=== PATIENT | female | born 1980 | race Caucasian/White ===

== ENCOUNTER 2017-12-26 21:48 | Emergency (ER) | payer OTHER ==
[~2017-12-26] VITALS: Ht 172.7 cm; Wt 98.0 kg
[2017-12-26 22:21] LABS: CLARITY,URINE CLOUDY (CLEAR); COLOR,URINE YELLOW (YELLOW)
[2017-12-26 22:22] LABS: BILIRUBIN,URINE NEGATIVE (NEGATIVE); KETONES,URINE NEGATIVE (NEGATIVE); LEUKOCYTE ESTERASE ,URINE NEGATIVE (NEGATIVE); NITRITE,URINE NEGATIVE (NEGATIVE); PROTEIN,URINE DIPSTICK NEGATIVE (NEGATIVE); URINE UROBILINOGEN 0.2 mg/dL (0.2 - 1)
[2017-12-26 22:24] LABS: RBC,URINE 21-50 /HPF (0-5); WBC,URINE (MAN) 0-5 /HPF (0-5)
[2017-12-26 22:25] LABS: AMORPHOUS SEDIMENT,URINE MODERATE (FEW); BACTERIA,URINE FEW /HPF; EPITHELIAL CELLS,URINE FEW /LPF
[2017-12-26 22:26] LABS: PREGNANCY TEST, URINE NEGATIVE (NEGATIVE)
--- NOTE | 2017-12-26 23:03 | Diagnostic Imaging Report ---
Exam: Head CT without contrast History: Headache Comparison studies: None Technique: Axial images were obtained from the skull base to the vertex. Coronal and sagittal images reconstructed from the axial data. Intravenous contrast: None Findings: Scalp: No abnormalities. Bones: No fractures, blastic or lytic lesions. Brain sulci: Appropriate for age. Ventricles: Normal in size and configuration. No hydrocephalus. Extra-axial spaces: No masses, no fluid collection. Parenchyma: No abnormal densities. No masses, acute hemorrhage, acute or chronic vascular insults. Sellar/suprasellar region: No abnormalities. Craniocervical junction: Patent foramen magnum. No Chiari one malformation. IMPRESSION: No acute abnormalities. Signed by: Dr. Will Ayala M.D. on 12/26/2017 10:59 PM
[2017-12-26 23:12] VITALS: BP 129/79
== END 2017-12-26 23:20 | disposition home or self-care (01) ==
LOC: ER 21:48
DX: G44.229 Chronic tension-type headache, not intractable (principal); I10 Essential (primary) hypertension; F31.9 Bipolar disorder, unspecified
CPT/HCPCS: 70450; 81001; 81025; 99283

== ENCOUNTER 2018-03-01 22:03 | Emergency (ER) | payer OTHER ==
[~2018-03-01] VITALS: Ht 172.7 cm; Wt 102.1 kg
--- NOTE | 2018-03-01 23:03 | Diagnostic Imaging Report ---
ELBOW 3 VIEW RT - HOPD HISTORY: Right elbow pain COMPARISON: None FINDINGS: Bones: No displaced fracture. Osseous alignment is within normal limits. Joints: The joint spaces are well-maintained. Soft tissues: The soft tissues appear unremarkable. IMPRESSION: No acute radiographic abnormality. Signed by: Dr. Rahul Lin M.D. on 03/01/2018 11:00 PM
== END 2018-03-01 23:25 | disposition home or self-care (01) ==
LOC: FSED 22:03
DX: S53.431A Radial collateral ligament sprain of right elbow, initial encounter (principal); W18.39XA Other fall on same level, initial encounter; Y92.008 Other place in unspecified non-institutional (private) residence as the place of occurrence of the external cause; I51.9 Heart disease, unspecified
CPT/HCPCS: 99283

== ENCOUNTER 2018-07-25 18:06 | Emergency (ER) | payer OTHER ==
[~2018-07-25] VITALS: Ht 172.7 cm; Wt 111.1 kg
--- OUTSIDE RECORDS SUMMARY | 2018-07-25 18:09 | XMS REPORT | Summary of Care ---
Author Author [facility] Organization [facility] Address Unknown Phone Unavailable Encounter CLOTILDE Martinez(MARYANN) [id number] Date(s): 06/13/15 - 06/14/15 [facility] [address] [place] [address]- Discharge Diagnosis: Pneumonia Discharge Disposition: Home Attending Physician: Monroe Corona MD Vital Signs 1 2 3 Most recent to oldest [Reference Range]: 172.72 cm (06/13/15 5:46 PM) Height 99.2 DegF *HI* (06/14/15 12:05 AM) 99.6 DegF *HI* (06/13/15 9:47 PM) 100.6 DegF *HI* (06/13/15 8:23 PM) Temperature Oral [96.4-99.1 DegF] 121/60 mmHg (06/14/15 12:05 AM) 122/62 mmHg (06/13/15 10:57 PM) 124/60 mmHg (06/13/15 9:47 PM) Blood Pressure [90-140/60-90 mmHg] 16 BRMIN (06/14/15 12:05 AM) 18 BRMIN (06/13/15 10:57 PM) 18 BRMIN (06/13/15 9:47 PM) Respiratory Rate [14-20 BRMIN] 80 bpm (06/14/15 12:05 AM) 98 bpm (06/13/15 10:57 PM) 104 bpm *HI* (06/13/15 9:47 PM) Peripheral Pulse Rate [60-100 bpm] 104.545 kg (06/13/15 5:46 PM) Weight 35.04 m2 (06/13/15 5:46 PM) Body Mass Index Problem List Condition Effective Dates Status Health Status Informant Atopic dermatitis1 08/29/10 Active Conjunctivitis2 12/11/10 Active Diabetes(Confirmed) Active Diarrhea3 05/08/10 Active Epigastric pain4 05/08/10 Active Mixed anxiety and 02/19/10 Active depressive disorder5 Right upper quadrant 05/08/10 Active pain6 1Data migrated from [employer] on 10/30/14. 2Data migrated from [employer] on 10/30/14. 3Data migrated from [employer] on 10/30/14. 4Data migrated from [employer] on 10/30/14. 5Data migrated from [employer] on 10/30/14. 6Data migrated from [employer] on 10/30/14. Allergies, Adverse Reactions, Alerts Substance Reaction Severity Status NKDA Active Medications azithromycin + Sodium Chloride 0.9% IV 250 mL 500 mg, Route: IVPB, ONCE, Dosing Weight 104.545, kg, Priority: STAT, Start date : 06/13/15 20:31:00, Stop date: 06/13/15 20:31:00 Notes: (Same As: Zithromax IV) Start Date: 06/13/15 Stop Date: 06/13/15 Status: Completed cefTRIAXone + Sodium Chloride 0.9% IV 100 mL 1 gm, Route: IVPB, ONCE, Dosing Weight 104.545, kg, Priority: STAT, Start date: 06/13/15 20:31:00, Stop date: 06/13/15 20:31:00 Notes: (Same As: Rocephin).Use with 100 mL NS and infuse over 30 min MEDICA TION WASTE Product Size: 1000 mgProduct Wasted: ___ mg Start Date: 06/13/15 Stop Date: 06/13/15 Status: Completed ketOROLAC 30 mg, 1 mL, Route: IVP, Drug form: INJ, ONCE, Dosing Weight 104.545, kg, Priori ty: STAT, Start date: 06/13/15 22:35:00, Stop date: 06/13/15 22:35:00 Notes: (Same as:Toradol) IV bolus must be given >15 seconds. Give IM administration slowly and deeply into the muscle.Not for use > 4 days MEDICATION WASTE Product Size: 30 mgProduct Wasted: ___ mg Start Date: 06/13/15 Stop Date: 06/13/15 Status: Completed Levaquin 750 mg oral tablet 750 mg=1 tab, PO, Q24H, X 10 day, # 10 tab, 0 Refill(s) Start Date: 06/13/15 Stop Date: 06/23/15 Status: Ordered Saline Flush 0.9% 10 mL, Route: IVP, Drug Form: INJ, Dosing Weight 104.545, kg, PRN, PRN Line Flus h, Start date: 06/13/15 20:27:00, Duration: 30 day, Stop date: 07/13/15 20:26:00 Notes: Same as: BD Posiflush Sterile Start Date: 06/13/15 Stop Date: 06/14/15 Status: Discontinued Sodium Chloride 0.9% (Bolus) IV 1,000 mL, 1000 ml/hr, Infuse Over: 1 hr, Route: IV, 1,000, Drug form: INJ, ONCE, Priority: STAT, Dosing Weight 104.545 kg, Start date: 06/13/15 20:31:00, Durati on: 1 doses or times, Stop date: 06/13/15 20:31:00 Start Date: 06/13/15 Stop Date: 06/13/15 Status: Completed Zofran 4 mg oral tablet 4 mg=1 tab, PO, TID, X 1 day, # 3 tab, 0 Refill(s) Start Date: 06/13/15 Stop Date: 06/14/15 Status: Completed Results ELECTROLYTES Most recent to 1 oldest [Reference Range]: Sodium Lvl [135-145 141 mEq/L mEq/L] (06/13/15 8:52 PM) Potassium Lvl 3.3 mEq/L [3.5-5.1 mEq/L] *LOW* (06/13/15 8:52 PM) Chloride Lvl [95-109 104 mEq/L mEq/L] (06/13/15 8:52 PM) CO2 [24-32 mEq/L] 25 mEq/L (06/13/15 8:52 PM) AGAP [10.0-20.0 15.3 mEq/L mEq/L] (06/13/15 8:52 PM) CHEM PANEL Most recent to 1 oldest [Reference Range]: Creatinine Lvl 1.21 mg/dL [0.50-1.40 mg/dL] (06/13/15 8:52 PM) eGFR 59 mL/min/1.73m2 1 *NA* (06/13/15 8:52 PM) BUN [7-22 mg/dL] 13 mg/dL (06/13/15 8:52 PM) B/C Ratio [6-25] 11 (06/13/15 8:52 PM) Glucose Lvl [70-99 150 mg/dL mg/dL] *HI* (06/13/15 8:52 PM) Total Protein 7.5 g/dL [6.4-8.4 g/dL] (06/13/15 8:52 PM) Albumin Lvl [3.5-5.0 3.5 g/dL g/dL] (06/13/15 8:52 PM) Globulin [2.0-4.0 4.0 g/dL g/dL] (06/13/15 8:52 PM) A/G Ratio [0.7-1.6] 0.9 (06/13/15 8:52 PM) Calcium Lvl 9.1 mg/dL [8.5-10.5 mg/dL] (06/13/15 8:52 PM) Phosphorus [2.5-4.5 1.9 mg/dL mg/dL] *LOW* (06/13/15 8:52 PM) Magnesium Lvl 1.5 mg/dL [1.8-2.4 mg/dL] *LOW* (06/13/15 8:52 PM) ALT [0-65 unit/L] 35 unit/L (06/13/15 8:52 PM) AST [0-37 unit/L] 16 unit/L (06/13/15 8:52 PM) Alk Phos [39-136 66 unit/L unit/L] (06/13/15 8:52 PM) Bili Total [0.2-1.3 0.8 mg/dL mg/dL] (06/13/15 8:52 PM) 1Result Comment: The eGFR is calculated using the CKD-EPI formula. In most young, healthy individuals the eGFR will be >90 mL/min/1.73m2. The eGFR declines with age. An eGFR of 60-89 may be normal in some populations, particularly the elderly, for whom the CKD-EPI formula has not been extensively validated. Use of the eGFR is not recommended in the following populations: Individuals with unstable creatinine concentrations, including patients and those with serious co-morbid conditions. Patients with extremes in muscle mass or diet. The data above are obtained from the National Kidney Disease Education Program ( NKDEP) which additionally recommends that when the eGFR is used in patients with extremes of body mass index for purposes of drug dosing, the eGFR should be mul tiplied by the estimated BMI. CARDIAC ENZYMES Most recent to 1 oldest [Reference Range]: Total CK [12-191 37 unit/L unit/L] (06/13/15 8:52 PM) CK MB [0.5-3.6 <0.5 ng/mL ng/mL] (06/13/15 8:52 PM) CK MB Index <1.4 [0.0-2.5] (06/13/15 8:52 PM) Troponin-I <0.02 ng/mL [0.00-0.40 ng/mL] (06/13/15 8:52 PM) BNP [<=100 pg/mL] 8 pg/mL (06/13/15 8:52 PM) HEMATOLOGY Most recent to 1 oldest [Reference Range]: WBC [3.7-10.4 K/CMM] 21.7 K/CMM *HI* (06/13/15 8:52 PM) RBC [4.20-5.40 3.99 M/CMM M/CMM] *LOW* (06/13/15 8:52 PM) Hgb [12.0-16.0 g/dL] 12.2 g/dL (06/13/15 8:52 PM) Hct [36.0-48.0 %] 36.4 % (06/13/15 8:52 PM) MCV [80.0-98.0 fL] 91.1 fL (06/13/15 8:52 PM) MCH [27.0-31.0 pg] 30.6 pg (06/13/15 8:52 PM) MCHC [32.0-36.0 33.6 g/dL g/dL] (06/13/15 8:52 PM) RDW [11.5-14.5 %] 12.6 % (06/13/15 8:52 PM) Platelet [133-450 251 K/CMM K/CMM] (06/13/15 8:52 PM) MPV [7.4-10.4 fL] 7.1 fL *LOW* (06/13/15 8:52 PM) Segs [45.0-75.0 %] 83.3 % *HI* (06/13/15 8:52 PM) Lymphocytes 6.9 % [20.0-40.0 %] *LOW* (06/13/15 8:52 PM) Monocytes [2.0-12.0 9.2 % %] (06/13/15 8:52 PM) Eosinophils [0.0-4.0 0.1 % %] (06/13/15 8:52 PM) Basophils [0.0-1.0 0.5 % %] (06/13/15 8:52 PM) Segs-Bands # 18.1 K/CMM [1.5-8.1 K/CMM] *HI* (06/13/15 8:52 PM) Lymphocytes # 1.5 K/CMM [1.0-5.5 K/CMM] (06/13/15 8:52 PM) Monocytes # [0.0-0.8 2.0 K/CMM K/CMM] *HI* (06/13/15 8:52 PM) Basophils # [0.0-0.2 0.1 K/CMM K/CMM] (06/13/15 8:52 PM) PT [12.0-14.7 14.5 seconds seconds] (06/13/15 8:52 PM) INR [0.85-1.17] 1.10 (06/13/15 8:52 PM) D-Dimer 0.29 ug/mL FEU *NA* (06/13/15 8:52 PM) PTT [22.9-35.8 34.9 seconds seconds] (06/13/15 8:52 PM) Immunizations No data available for this section Procedures No data available for this section Social History Social History Type Response Alcohol Never Smoking Status Never smoker; Exposure to Tobacco Smoke None; Cigarette Smoking Last 365 Days No; Reg Smoking Cessation Counseling No Assessment and Plan No data available for this section
--- OUTSIDE RECORDS SUMMARY | 2018-07-25 18:09 | XMS REPORT | Clinical Summary ---
Author Author [facility] Address Unknown Phone Unavailable Care Team Providers Care Major Sales Associate Name Role Phone Asked, No Pcp PCP Unavailable Allergies No Known Allergies Medications End Date Status Medication Sig Dispensed Refills Start Date Active venlafaxine XR TAKE ONE (1) 2 (EFFEXOR-XR) 150 MG 24 hr CAPSULE(S) BY 7 capsule MOUTH DAILY. Active metFORMIN XR TAKE ONE (1) 1 (GLUCOPHAGE-XR) 500 mg 24 TABLET(S) BY 7 hr tablet MOUTH TWICE DAILY. Active diazePAM (VALIUM) 10 MG TAKE ONE (1) 2 tablet TABLET(S) BY 7 MOUTH DAILY NEEDED FOR SEVERE ANXIETY. Active benzonatate (TESSALON) TAKE ONE (1) 0 200 MG capsule CAPSULE(S) BY 7 MOUTH THREE TIMES A DAY NEEDED. Active ibuprofen (ADVIL) 200 MG Take 200 mg 0 tablet by mouth every 6 (six) hours as needed for mild pain. Active diclofenac (VOLTAREN) 1 % Apply 3 Tube 1 gel topically 4 8 (four) times a day. Active lamoTRIgine (LaMICtal) Take 150 mg 0 150 MG tablet by mouth daily. Active amoxicillin (AMOXIL) 500 TAKE ONE (1) 0 MG capsule CAPSULE(S) BY 8 MOUTH EVERY EIGHT HOURS UNTIL ALL TAKEN. Active metoprolol succinate XL TAKE ONE (1) 3 (TOPROL-XL) 50 mg 24 hr TABLET(S) BY 8 tablet MOUTH ONCE A DAY. Active QUEtiapine (SEROquel) 400 Take 400 mg 0 MG tablet by mouth nightly. Also takes 100 mg together, to take 500 mg total qhs 10/01/2017 Discontinued QUEtiapine (SEROquel) 300 TAKE ONE (1) 2 MG tablet TABLET(S) BY 7 MOUTH AT EVERY BEDTIME. 10/01/2017 Discontinued QUEtiapine (SEROquel) 400 TAKE ONE (1) 2 MG tablet TABLET(S) BY 8 MOUTH ONCE A DAY AT BEDTIME. Active Problems Problem Noted Date Lateral epicondylitis, left elbow 06/22/2017 Encounters Care Team Description Date Type Specialty Jennifer Bryant MD Medial epicondylitis, left (Primary Dx); Closed fracture dislocation of right elbow joint, initial encounter 03/08/2018 Office Visit Orthopedic Surgery Jennifer Bryant MD Medial epicondylitis, left (Primary Dx) 10/01/2017 Office Visit Orthopedic Surgery after 07/24/2017 Family History Medical History Relation Name Comments Diabetes Father Heart disease Father Kidney disease Father Diabetes Mother Heart disease Mother Hypertension Sister Relation Name Status Comments Father Mother Alive Sister Alive Social History Date Tobacco Use Types Packs/Day Years Used Never Smoker Smokeless Tobacco: Never Used Alcohol Use Drinks/Week oz/Week Comments No Sex Assigned at Date Recorded Not on file Industry Job Start Date Occupation Not on file Not on file Not on file Travel End Travel History Travel Start No recent travel history available. Last Filed Vital Signs Time Taken Vital Sign Reading - Blood Pressure - - Pulse - - Temperature - - Respiratory Rate - - Oxygen Saturation - - Inhaled Oxygen - Concentration 10/01/2017 4:24 PM CDT Weight 99.8 kg (220 lb) 10/01/2017 4:24 PM CDT Height 172.7 cm (5' 8") 10/01/2017 4:24 PM CDT Body Mass Index 33.45 Plan of Treatment Health Maintenance Due Date Last Done Comments CERVICAL CANCER SCREENING 2003 INFLUENZA VACCINE 12/29/2017 Procedures Comments Procedure Name Priority Date/Time Associated Diagnosis [place] ARTHROCENTESIS Routine 03/08/2018 Medial epicondylitis, ASPIR&/INJ INTERM JT/BURS 8:30 AM CDT left W/O US [place] ARTHROCENTESIS Routine 10/01/2017 Medial epicondylitis, ASPIR&/INJ INTERM JT/BURS 3:50 PM CDT left W/O US after 07/24/2017 Results * Medium Joint Arthrocentesis (03/08/2018 8:30 AM CDT) Narrative Performed At Jennifer Bryant MD 03/08/20188:59 AM Medium Joint Arthrocentesis Supporting Documentation Indications: pain Procedure Details Location: elbow - L elbow Left side: Approach: medial Left elbow medications administered: 40 mg methylPREDNISolone acetate 40 mg/mL; 1 mL lidocaine 10 mg/mL (1 %) (The patient will apply ice to the injected area today and use OTC meds as needed for injection pain. We discussed potential risks to include infection, pain, ineffectuality, fat atrophy, skin pigmentation loss, and need for more treatment.) * Medium Joint Arthrocentesis (10/01/2017 3:50 PM CDT) Narrative Performed At Jennifer Brynat MD 10/01/20175:06 PM Medium Joint Arthrocentesis Supporting Documentation Indications: pain Procedure Details Location: elbow - L elbow Left side: Approach: medial Left elbow medications administered: 40 mg methylPREDNISolone acetate 40 mg/mL; 1 mL lidocaine 10 mg/mL (1 %) (The patient will apply ice to the injected area today and use OTC meds as needed for injection pain. We discussed potential risks to include infection, pain, ineffectuality, fat atrophy, skin pigmentation loss, and need for more treatment.) after 07/24/2017 Insurance Payer Benefit Subscriber ID Type Phone Address Plan / Group AETNA AETNA PPO xxxxxxxxxx PPO OPEN CHOICE Advance Directives Patient has advance care planning documents on file. For more information, ana manjarrez contact: Aric Miguel [address] [place] [address]
--- OUTSIDE RECORDS SUMMARY | 2018-07-25 18:09 | XMS REPORT | Summary of Care ---
Author Author [facility] Organization [facility] Address Unknown Phone Unavailable Encounter CLOTILDE Martinez(MARYANN) [id number] Date(s): 09/26/16 - 09/27/16 [facility] [address] [place] [address]- Discharge Diagnosis: Pain, dental Discharge Diagnosis: Dental caries Discharge Disposition: Home or Self Care Attending Physician: Trevor Espinosa DO Vital Signs Most recent to 1 2 oldest [Reference Range]: Height 172.72 cm (09/26/16 8:56 PM) Temperature Oral 98.6 DegF 98.7 DegF [96.4-99.1 DegF] (09/27/16 12:47 AM) (09/26/16 8:56 PM) Blood Pressure 142/78 mmHg 149/90 mmHg [90-140/60-90 mmHg] *HI* *HI* (09/27/16 12:47 AM) (09/26/16 8:56 PM) Respiratory Rate 18 BRMIN 18 BRMIN [14-20 BRMIN] (09/27/16 12:47 AM) (09/26/16 8:56 PM) Peripheral Pulse 70 bpm 76 bpm Rate [60-100 bpm] (09/27/16 12:47 AM) (09/26/16 8:56 PM) Weight 106.818 kg (09/26/16 8:56 PM) Body Mass Index 35.81 m2 (09/26/16 8:56 PM) Problem List Condition Effective Dates Status Health Status Informant Atopic dermatitis1 08/29/10 Active Bipolar 2 Resolved disorder(Confirmed) Conjunctivitis2 12/11/10 Active Diabetes(Confirmed) Active Diarrhea3 05/08/10 [...] Substance Reaction Severity Status NKDA Active Medications penicillin V potassium 500 mg oral tablet 500 mg=1 tab, PO, BID, X 10 day, # 20 tab, 0 Refill(s) Start Date: 09/27/16 Stop Date: 10/07/16 Status: Ordered Peridex 0.12% topical liquid 0.018 gm=15 ml, PO, BID, # 480 ml, 0 Refill(s) Start Date: 09/27/16 Status: Ordered Tylenol with Codeine #3 oral tablet 1 tab, PO, Q6H, PRN Pain Score 4-6, X 5 day, # 30 tab, 0 Refill(s) Start Date: 09/27/16 Stop Date: 10/02/16 Status: Ordered Results No data available for this section Immunizations No data available for this section Procedures No data available for this section Social History Social History Type Response Alcohol Never Smoking Status Never smoker; Exposure to Tobacco Smoke None; Cigarette Smoking Last 365 Days No; Reg Smoking Cessation Counseling No Assessment and Plan No data available for this section
--- OUTSIDE RECORDS SUMMARY | 2018-07-25 18:09 | XMS REPORT | Summary of Care ---
Author Author [facility] Outpatient Imaging - [facility] - [place] Address Unknown Phone Unavailable Encounter HQ Nohemintr_enedina(FIN) [id number] Date(s): 07/31/15 - 07/31/15 [facility] Outpatient Imaging [facility] [address], [address] [place] [address]- [facility] [phone] Discharge Disposition: Home Attending Physician: Darryn Hammond MD Vital Signs No data available for this section Problem List Condition Effective Dates Status Health [...] Substance Reaction Severity Status NKDA Active Medications No data available for this section Results No data available for this section [...]
--- OUTSIDE RECORDS SUMMARY | 2018-07-25 18:09 | XMS REPORT | Summary of Care ---
Author Author [facility] Outpatient Imaging - [facility] Outpatient [facility] - [place] Address Unknown Phone Unavailable Encounter [facility] Marshar_enedina(FIN) [id number] Date(s): 09/02/15 - 09/02/15 [facility] Outpatient Imaging [facility] [address], [address] [place] [id number] [phone] Discharge Disposition: Home Attending Physician: aDrryn Hammond MD Vital Signs No data available [...]
--- OUTSIDE RECORDS SUMMARY | 2018-07-25 18:09 | XMS REPORT | Summary of Care ---
Author Author [facility] Organization [facility] Address Unknown Phone Unavailable Encounter CLOTILDE Martinez(MARYANN) [id number] Date(s): 05/30/15 - 05/30/15 [facility] [address] [place] [address]- Discharge Diagnosis: Coxsackievirus as the cause of diseases classified elsewher e Discharge Disposition: Home Attending Physician: Silvia Grace DO Vital Signs Most recent to 1 2 oldest [Reference Range]: Height 172.72 cm (05/30/15 12:52 PM) Temperature Oral 98.1 DegF 97.9 DegF [96.4-99.1 DegF] (05/30/15 2:45 PM) (05/30/15 12:52 PM) Blood Pressure 126/76 mmHg 142/88 mmHg [90-140/60-90 mmHg] (05/30/15 2:45 PM) *HI* (05/30/15 12:52 PM) Respiratory Rate 18 BRMIN 18 BRMIN [14-20 BRMIN] (05/30/15 2:45 PM) (05/30/15 12:52 PM) Peripheral Pulse 76 bpm 89 bpm Rate [60-100 bpm] (05/30/15 2:45 PM) (05/30/15 12:52 PM) Weight 109.091 kg (05/30/15 12:52 PM) Body Mass Index 36.57 m2 (05/30/15 12:52 PM) Problem List Condition Effective Dates Status Health Status Informant Atopic dermatitis1 08/29/10 Active Conjunctivitis2 12/11/10 Active Diarrhea3 05/08/10 Active Epigastric pain4 05/08/10 [...] Substance Reaction Severity Status NKDA Active Medications dexamethasone 4 mg, Route: IM, ONCE, Dosing Weight 109.091, kg, Priority: STAT, Start date: 13:09:00, Stop date: 05/30/15 13:09:00 Start Date: 05/30/15 Stop Date: 05/30/15 Status: Completed diphenhydrAMINE 25 mg, Route: PO, Drug form: CAP, ONCE, Dosing Weight 109.091, kg, Priority: STA T, Start date: 05/30/15 13:10:00, Stop date: 05/30/15 13:10:00 Start Date: 05/30/15 Stop Date: 05/30/15 Status: Completed famotidine 20 mg, Route: PO, ONCE, Dosing Weight 109.091, kg, Priority: STAT, Start date: 13:10:00, Stop date: 05/30/15 13:10:00 Start Date: 05/30/15 Stop Date: 05/30/15 Status: Completed famotidine 20 mg oral tablet 20 mg=1 tab, PO, BID, # 30 tab, 0 Refill(s) Start Date: 05/30/15 Status: Ordered hydrOXYzine hydrochloride 25 mg oral tablet 1-2 tab, PO, TID, PRN Itching, X 7 day, # 45 tab, 0 Refill(s) Start Date: 05/30/15 Stop Date: 06/06/15 Status: Ordered Results No data available for this section Immunizations No data available for this section Procedures No data available for this section Social History Social History Type Response Smoking Status Never smoker; Exposure to Tobacco Smoke None; Cigarette Smoking Last 365 Days No; Reg Smoking Cessation Counseling No Assessment and Plan No data available for this section
--- OUTSIDE RECORDS SUMMARY | 2018-07-25 18:09 | XMS REPORT | Continuity of Care Document ---
Author Author [facility] Interface Address Unknown Phone Unavailable Problems Problem Status Onset Date Classification Date Reported Comments Source Discharge Diagnosis: Pain, dental 09/27/2016 09/30/2016 [facility] Discharge Diagnosis: Dental caries 09/27/2016 09/30/2016 [facility] ABCESS IN MOUTH Active 09/26/2016 [facility] Discharge Diagnosis: Pneumonia 06/13/2015 06/17/2015 [facility] SOB Active 06/13/2015 [facility] Discharge Diagnosis: Coxsackievirus as the cause of diseases classified elsewhere 05/30/2015 06/02/2015 [facility] RASH Active 05/30/2015 [facility] Conjunctivitis<sup>2</sup> Active 12/11/2010 Problem 09/30/2016 Data migrated from [employer] on 10/30/14. [facility] Atopic dermatitis<sup>1</sup> Active 08/29/2010 Problem 09/30/2016 Data migrated from [employer] on 10/30/14. [facility] Diarrhea<sup>3</sup> Active 05/08/2010 Problem 09/30/2016 Data migrated from [employer] on 10/30/14. [facility] Epigastric pain<sup>4</sup> Active 05/08/2010 Problem 09/30/2016 Data migrated from [employer] on 10/30/14. [facility] Right upper quadrant pain<sup>6</sup> Active 05/08/2010 Problem 09/30/2016 Data migrated from [employer] on 10/30/14. [facility] Mixed anxiety and depressive disorder<sup>5</sup> Active 02/19/2010 Problem 09/30/2016 Data migrated from [employer] on 10/30/14. [facility] Bipolar 2 disorder Resolved Problem 09/30/2016 [facility] Diabetes Active Problem 09/30/2016 [facility] Medications Medication Details Route Status Patient Instructions Ordering Provider Order Date Source Acetaminophen 300 MG / Codeine Phosphate 30 MG Oral Tablet [Tylenol with Codeine #3] 1 tab, PO, Q6H, PRN Pain Score 4-6, X 5 day, # 30 tab, 0 Refill(s) Active 09/27/2016 [facility] chlorhexidine gluconate 1.2 MG/ML Mouthwash [Peridex] 0.018 gm=15 ml, PO, BID, # 480 ml, 0 Refill(s) Active 09/27/2016 [facility] Penicillin V Potassium 500 MG Oral Tablet 500 mg=1 tab, PO, BID, X 10 day, # 20 tab, 0 Refill(s) Active 09/27/2016 [facility] Ketorolac 30 mg, 1 mL, Route: IVP, Drug form: INJ, ONCE, Dosing Weight 104.545, kg, Priority: STAT, Start date: 06/13/15 22:35:00, Stop date: 06/13/15 22:35:00Notes: (Same as:Toradol) IV bolus must be given >15 seconds. Give IM administration slowly and deeply into the muscle. Not for use > 4 days MEDICATION WASTE Product Size: 30 mg Product Wasted: ___ mg Inactive 06/14/2015 [facility] Ondansetron 4 MG Oral Tablet [Zofran] 4 mg=1 tab, PO, TID, X 1 day, # 3 tab, 0 Refill(s) No Longer Active 06/14/2015 [facility] Levofloxacin 750 MG Oral Tablet [Levaquin] 750 mg=1 tab, PO, Q24H, X 10 day, # 10 tab, 0 Refill(s) Active 06/14/2015 [facility] Sodium Chloride 0.154 MEQ/ML Injectable Solution 1,000 mL, 1000 ml/hr, Infuse Over: 1 hr, Route: IV, 1,000, Drug form: INJ, ONCE, Priority: STAT, Dosing Weight 104.545 kg, Start date: 06/13/15 20:31:00, Duration: 1 doses or times, Stop date: 06/13/15 20:31:00 Inactive 06/14/2015 [facility] Azithromycin 500 mg, Route: IVPB, ONCE, Dosing Weight 104.545, kg, Priority: STAT, Start date: 06/13/15 20:31:00, Stop date: 06/13/15 20:31:00Notes: (Same As: Zithromax IV) Inactive 06/14/2015 [facility] Ceftriaxone 1 gm, Route: IVPB, ONCE, Dosing Weight 104.545, kg, Priority: STAT, Start date: 06/13/15 20:31:00, Stop date: 06/13/15 20:31:00Notes: (Same As: Rocephin). Use with 100 mL NS and infuse over 30 min MEDICATION WASTE Product Size: 1000 mg Product Wasted: ___ mg Inactive 06/14/2015 [facility] Saline Flush 0.9% 10 mL, Route: IVP, Drug Form: INJ, Dosing Weight 104.545, kg, PRN, PRN Line Flush, Start date: 06/13/15 20:27:00, Duration: 30 day, Stop date: 07/13/15 20:26:00Notes: Same as: BD Posiflush Sterile No Longer Active 06/14/2015 [facility] Famotidine 20 MG Oral Tablet 20 mg=1 tab, PO, BID, # 30 tab, 0 Refill(s) Active 05/30/2015 [facility] Hydroxyzine Hydrochloride 25 MG Oral Tablet 1-2 tab, PO, TID, PRN Itching, X 7 day, # 45 tab, 0 Refill(s) Active 05/30/2015 [facility] Famotidine 20 mg, Route: PO, ONCE, Dosing Weight 109.091, kg, Priority: STAT, Start date: 05/30/15 13:10:00, Stop date: 05/30/15 13:10:00 Inactive 05/30/2015 [facility] Diphenhydramine 25 mg, Route: PO, Drug form: CAP, ONCE, Dosing Weight 109.091, kg, Priority: STAT, Start date: 05/30/15 13:10:00, Stop date: 05/30/15 13:10:00 Inactive 05/30/2015 [facility] Dexamethasone 4 mg, Route: IM, ONCE, Dosing Weight 109.091, kg, Priority: STAT, Start date: 05/30/15 13:09:00, Stop date: 05/30/15 13:09:00 Inactive 05/30/2015 [facility] Allergies, Adverse Reactions, Alerts Substance Category Reaction Severity Reaction type Status Date Reported Comments Source Immunizations Immunization Date Given Site Status Last Updated Comments Source Results Order Name Results Value Reference Range Date Interpretation Comments Source Amorphous sediment detection in urine sediment by light microscopy Amorphous sediment detection in urine sediment by light microscopy MODERATE FEW 12/26/2017 [facility] Automated urine sediment leukocyte count by microscopy (number/high power field) Automated urine sediment leukocyte count by microscopy (number/high power field) null 0 - 5 12/26/2017 [facility] Bacteria detection in urine sediment by light microscopy Bacteria detection in urine sediment by light microscopy FEW NONE 12/26/2017 [facility] Epithelial cells detection in urine sediment by light microscopy Epithelial cells detection in urine sediment by light microscopy FEW NONE 12/26/2017 [facility] Erythrocytes detection in urine sediment by light microscopy Erythrocytes detection in urine sediment by light microscopy null 0 - 5 12/26/2017 [facility] Specific gravity of Urine by Test strip Specific gravity of Urine by Test strip 1.025 1.010 - 1.025 12/26/2017 [facility] Urine clarity Urine clarity CLOUDY CLEAR 12/26/2017 [facility] Urine color determination Urine color determination YELLOW YELLOW 12/26/2017 [facility] Urine erythrocytes detection Urine erythrocytes detection 3+ NEGATIVE 12/26/2017 [facility] Urine glucose detection Urine glucose detection NEGATIVE NEGATIVE 12/26/2017 [facility] Urine human chorionic gonadotropin (hCG) detection Urine human chorionic gonadotropin (hCG) detection NEGATIVE NEGATIVE 12/26/2017 [facility] Urine ketones detection by automated test strip Urine ketones detection by automated test strip NEGATIVE NEGATIVE 12/26/2017 [facility] Urine leukocyte esterase detection by dipstick Urine leukocyte esterase detection by dipstick NEGATIVE NEGATIVE 12/26/2017 [facility] Urine nitrite detection Urine nitrite detection NEGATIVE NEGATIVE 12/26/2017 [facility] Urine pH measurement by automated test strip Urine pH measurement by automated test strip 6.5 5 - 7 12/26/2017 [facility] Urine protein measurement by test strip (mass/volume) Urine protein measurement by test strip (mass/volume) NEGATIVE NEGATIVE 12/26/2017 [facility] Urine total bilirubin measurement (mass/volume) Urine total bilirubin measurement (mass/volume) NEGATIVE NEGATIVE 12/26/2017 [facility] Urine urobilinogen measurement by test strip (mass/volume) Urine urobilinogen measurement by test strip (mass/volume) 0.2 0.2 - 1 12/26/2017 [facility] Chest 2 views DX Chest 2 views DX EXAM: XR CHEST 2 VIEWS DATE: 09/02/2015 8:24 AM CDT INDICATION: J18.9 Pneumonia, unspecified organism COMPARISON: 07/31/2015 TECHNIQUE: PA and lateral chest radiographs FINDINGS: Lines and tubes: None. Lungs and pleura: No pulmonary or pleural based abnormality is identified. Heart and mediastinum: The heart size is normal for technique. The mediastinal contours are normal. Bones: No acute bony abnormality is identified. IMPRESSION: 1. No acute cardiopulmonary abnormality. 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 No lung parenchymal or pleural abnormalities are seen Britney and pulmonary vasculature are normal. Cardiomediastinal silhouette is normal in appearance. No acute bony abnormality is identified. IMPRESSION: No acute cardiopulmonary abnormality. Interval resolution of right upper lobe pneumonia. 07/31/2015 - - Read by: Dariel Valle MD Dictated Date/time: 07/31/15 10:27 Electronically Signed by: Dariel Valle MD 07/31/15 10:28 FINAL REPORT [facility] CARDIAC ENZYMES CK MB Index null 0.0 - 2.5 06/14/2015 [facility] CARDIAC ENZYMES Troponin-I null 0.00 - 0.40 06/14/2015 [facility] CARDIAC ENZYMES BNP 8 pg/mL <=100 pg/mL 06/14/2015 [facility] CARDIAC ENZYMES CK MB null 0.5 - 3.6 06/14/2015 [facility] CARDIAC ENZYMES Total CK 37 unit/L 12 - 191 06/14/2015 [facility] CHEM PANEL Phosphorus 1.9 mg/dL 2.5 - 4.5 06/14/2015 [facility] CHEM PANEL Magnesium Lvl 1.5 mg/dL 1.8 - 2.4 06/14/2015 [facility] CHEM PANEL eGFR 59 mL/min/1.73m2 06/14/2015 Result Comment: The eGFR is calculated using the [...] from the National Kidney Disease Education Program (NKDEP) which additionally recommends that when the eGFR is used in patients with extremes of body mass index for purposes of drug dosing, the eGFR should be multiplied by the estimated BMI. [facility] CHEM PANEL Alk Phos 66 unit/L 39 - 136 06/14/2015 [facility] CHEM PANEL Bili Total 0.8 mg/dL 0.2 - 1.3 06/14/2015 [facility] CHEM PANEL AGAP 15.3 meq/L 10.0 - 20.0 06/14/2015 [facility] CHEM PANEL BUN 13 mg/dL 7 - 22 06/14/2015 [facility] CHEM PANEL Glucose Lvl 150 mg/dL 70 - 99 06/14/2015 [facility] CHEM PANEL B/C Ratio 11 6 - 25 06/14/2015 [facility] CHEM PANEL A/G Ratio 0.9 0.7 - 1.6 06/14/2015 [facility] CHEM PANEL Globulin 4.0 g/dL 2.0 - 4.0 06/14/2015 [facility] CHEM PANEL Creatinine Lvl 1.21 mg/dL 0.50 - 1.40 06/14/2015 [facility] CHEM PANEL Chloride Lvl 104 meq/L 95 - 109 06/14/2015 [facility] CHEM PANEL Potassium Lvl 3.3 meq/L 3.5 - 5.1 06/14/2015 [facility] CHEM PANEL Calcium Lvl 9.1 mg/dL 8.5 - 10.5 06/14/2015 [facility] CHEM PANEL CO2 25 meq/L 24 - 32 06/14/2015 [facility] CHEM PANEL Sodium Lvl 141 meq/L 135 - 145 06/14/2015 [facility] CHEM PANEL ALT 35 unit/L 0 - 65 06/14/2015 [facility] CHEM PANEL AST 16 unit/L 0 - 37 06/14/2015 [facility] CHEM PANEL Albumin Lvl 3.5 g/dL 3.5 - 5.0 06/14/2015 [facility] CHEM PANEL Total Protein 7.5 g/dL 6.4 - 8.4 06/14/2015 [facility] HEMATOLOGY Lymphocytes 6.9 % 20.0 - 40.0 06/14/2015 [facility] HEMATOLOGY Segs 83.3 % 45.0 - 75.0 06/14/2015 [facility] HEMATOLOGY Basophils 0.5 % 0.0 - 1.0 06/14/2015 [facility] HEMATOLOGY Eosinophils 0.1 % 0.0 - 4.0 06/14/2015 [facility] HEMATOLOGY Monocytes 9.2 % 2.0 - 12.0 06/14/2015 [facility] HEMATOLOGY Lymphocytes # 1.5 K/CMM 1.0 - 5.5 06/14/2015 [facility] HEMATOLOGY Segs-Bands # 18.1 K/CMM 1.5 - 8.1 06/14/2015 [facility] HEMATOLOGY Basophils # 0.1 K/CMM 0.0 - 0.2 06/14/2015 [facility] HEMATOLOGY Monocytes # 2.0 K/CMM 0.0 - 0.8 06/14/2015 [facility] HEMATOLOGY PTT 34.9 s 22.9 - 35.8 06/14/2015 [facility] HEMATOLOGY WBC 21.7 K/CMM 3.7 - 10.4 06/14/2015 [facility] HEMATOLOGY MPV 7.1 fL 7.4 - 10.4 06/14/2015 [facility] HEMATOLOGY Platelet 251 K/CMM 133 - 450 06/14/2015 [facility] HEMATOLOGY RBC 3.99 M/CMM 4.20 - 5.40 06/14/2015 [facility] HEMATOLOGY Hgb 12.2 g/dL 12.0 - 16.0 06/14/2015 [facility] HEMATOLOGY Hct 36.4 % 36.0 - 48.0 06/14/2015 [facility] MCH 30.6 pg 27.0 - 31.0 06/14/2015 [facility] HEMATOLOGY RDW 12.6 % 11.5 - 14.5 06/14/2015 [facility] MCHC 33.6 g/dL 32.0 - 36.0 06/14/2015 [facility] HEMATOLOGY MCV 91.1 fL 80.0 - 98.0 06/14/2015 [facility] HEMATOLOGY INR 1.10 0.85 - 1.17 06/14/2015 [facility] HEMATOLOGY PT 14.5 s 12.0 - 14.7 06/14/2015 [facility] HEMATOLOGY D-Dimer 0.29 ug/mL FEU 06/14/2015 [facility] Chest 2 views DX Chest 2 views DX PROCEDURE: Chest 2 views REASON FOR EXAM: pt c/o SOB and fever since yesterday but has been feeling bad since Wednesday - patient shielded CLINICAL INFORMATION Dyspnea COMPARISON: None. Right upper lobe rounded opacity measures 3.8 x 2.4 cm suspicious for pneumonia, less likely contusion. Follow-up to document resolution is recommended to exclude a mass. No effusions or pneumothorax. Normal heart and pulmonary vasculature. SL: 14 06/13/2015 - - Read by: Natalio Cordero MD Dictated Date/time: 06/13/15 20:29 Electronically Signed by: Natalio Cordero MD 06/13/15 20:31 FINAL REPORT [facility] Vital Signs Vital Sign Value Date Comments Source Temperature Oral (F) 98.6 F 09/27/2016 [facility] Heart Rate 70 09/27/2016 [facility] Systolic (mm Hg) 142 09/27/2016 [facility] Diastolic (mm Hg) 78 09/27/2016 [facility] Respitory Rate 18 09/27/2016 [facility] Weight 106.818 09/27/2016 [facility] Respitory Rate 18 09/27/2016 [facility] Heart Rate 76 09/27/2016 [facility] Systolic (mm Hg) 149 09/27/2016 [facility] Diastolic (mm Hg) 90 09/27/2016 [facility] Temperature Oral (F) 98.7 F 09/27/2016 [facility] BMI Calculated 35.81 09/27/2016 [facility] Height 172.72 cm 09/27/2016 [facility] Temperature Oral (F) 99.2 F 06/14/2015 [facility] Systolic (mm Hg) 121 06/14/2015 [facility] Diastolic (mm Hg) 60 06/14/2015 [facility] Heart Rate 80 06/14/2015 [facility] Respitory Rate 16 06/14/2015 [facility] Heart Rate 98 06/14/2015 [facility] Respitory Rate 18 06/14/2015 [facility] Systolic (mm Hg) 122 06/14/2015 [facility] Diastolic (mm Hg) 62 06/14/2015 [facility] Respitory Rate 18 06/14/2015 [facility] Systolic (mm Hg) 124 06/14/2015 [facility] Diastolic (mm Hg) 60 06/14/2015 [facility] Temperature Oral (F) 99.6 F 06/14/2015 [facility] Heart Rate 104 06/14/2015 [facility] Temperature Oral (F) 100.6 F 06/14/2015 [facility] Weight 104.545 06/13/2015 [facility] Height 172.72 cm 06/13/2015 [facility] BMI Calculated 35.04 06/13/2015 [facility] Systolic (mm Hg) 126 05/30/2015 [facility] Diastolic (mm Hg) 76 05/30/2015 [facility] Temperature Oral (F) 98.1 F 05/30/2015 [facility] Respitory Rate 18 05/30/2015 [facility] Heart Rate 76 05/30/2015 [facility] Height 172.72 cm 05/30/2015 [facility] Weight 109.091 05/30/2015 [facility] BMI Calculated 36.57 05/30/2015 [facility] Heart Rate 89 05/30/2015 [facility] Systolic (mm Hg) 142 05/30/2015 [facility] Diastolic (mm Hg) 88 05/30/2015 [facility] Temperature Oral (F) 97.9 F 05/30/2015 [facility] Respitory Rate 18 05/30/2015 [facility] Encounters Location Location Details Encounter Type Encounter Number Reason For Visit Attending Provider ADM Date DC Date Status Source [facility] [id number] Silvia Grace 05/30/2015 05/30/[address] [facility] [id number] [place] 06/13/2015 06/14/2015 [facility] [id number] Darryn Hammond 07/31/2015 08/01/2015 [facility] [id number] Darryn Hammond 09/02/2015 09/03/2015 [facility] Emergency [id number] Trevor Espinosa 09/27/2016 09/27/2016 [facility] Departed Emergency Room [id number] ALTON GARCIA MD 12/26/2017 12/26/2017 [facility] Departed Emergency Room [id number] KONSTANTIN PARRY MD 2018 2018 [facility] Procedures Procedure Code Date Perfomer Comments Source Computed tomography of brain without radiopaque contrast [id number] 12/26/2017 JOSE [facility]
[2018-07-25] MEDS ORDERED: KETOROLAC TROMETHAMINE 30 MG/ML VIAL IV ONE (18:27)
[2018-07-25] MEDS ORDERED: SODIUM CHLORIDE 0.9% 1000ML 1,000 ML IV SCH (18:30)
[2018-07-25] MEDS ORDERED: BACTRIM DS TAB1 EACH PO (18:42)
[2018-07-25] MEDS ORDERED: FLAGYL500 MG PO (18:43)
[2018-07-25] MEDS ORDERED: LOMOTIL TABLET1 EACH PO (19:29)
--- NOTE | 2018-07-25 20:22 | Diagnostic Imaging Report ---
EXAM: CT Abdomen and Pelvis WITHOUT contrast INDICATION: Abdominal pain and urinary frequency COMPARISON: None. TECHNIQUE: Abdomen and pelvis were scanned utilizing a multidetector helical scanner from the lung base to the pubic symphysis without administration of IV contrast. Absence of intravenous contrast decreases sensitivity for detection of focal lesions and vascular pathology. Coronal and sagittal reformations were obtained. Stone protocol is performed. IV CONTRAST: None ORAL CONTRAST: Water COMPLICATIONS: None RADIATION DOSE: Total DLP: 850 mGy*cm Estimated effective dose: (DLP x 0.015 x size factor) mSv CTDIvol has been reviewed. It is below the limits set by the Radiation Protocol Committee (RPC). FINDINGS: LINES and TUBES: None. LOWER THORAX: Unremarkable HEPATOBILIARY: No focal hepatic lesions. No biliary ductal dilation. GALLBLADDER: No radio-opaque stones or sludge. No wall thickening. SPLEEN: No splenomegaly. PANCREAS: No focal masses or ductal dilatation. ADRENALS: No adrenal nodules KIDNEYS/URETERS: No hydronephrosis. No cystic or solid mass lesions. No stones. GI TRACT: No abnormal distention, wall thickening, or evidence of bowel obstruction. Appendectomy PELVIC ORGANS/BLADDER: Unremarkable. LYMPH NODES: No lymphadenopathy. VESSELS: Unremarkable. PERITONEUM / RETROPERITONEUM: No free air or fluid. BONES: A 0.9 cm bone island is in the left acetabulum. Mildly degenerated disc at L5-S1 with facet arthropathy. SOFT TISSUES: Unremarkable. IMPRESSION: No acute abnormalities and pelvis. No renal or ureteral calculi. Signed by: Seble Torres MD on 07/25/2018 8:19 PM
[2018-07-25] MEDS ORDERED: ONDANSETRON ODT8 MG PO (20:43)
[2018-07-25 20:58] VITALS: BP 148/86
== END 2018-07-25 21:00 | disposition home or self-care (01) ==
LOC: FSED 18:06
DX: R10.33 Periumbilical pain (principal); R19.7 Diarrhea, unspecified
CPT/HCPCS: 74176; 80048; 80076; 81003; 81025; 85025; 99284; J1885; J7030